=== PATIENT | female | born 1985 | race Hispanic/Latino ===

== ENCOUNTER 2021-06-30 08:12 | Emergency (ER) | payer OTHER, BC | END 2021-06-30 09:12 | disposition home or self-care (01) | LOC: NAV ERS 08:12 | DX: S40.022A Contusion of left upper arm, initial encounter (principal); S63.612A Unspecified sprain of right middle finger, initial encounter; M79.622 Pain in left upper arm; Z79.899 Other long term (current) drug therapy; V89.2XXA Person injured in unspecified motor-vehicle accident, traffic, initial encounter ==